=== PATIENT | female | born 1985 | race Caucasian/White ===

== ENCOUNTER 2016-12-05 00:10 | Emergency (ER) | payer BC ==
[~2016-12-05] VITALS: Ht 167.6 cm; Wt 88.9 kg
[~2016-12-05 00:10] MED LIST: NORE0.359 PO
[2016-12-05 00:42] LABS: Basophils # (auto) 0.1 uL; Basophils % (auto) 0.7 % (0.0-2.0); Eosinophils # (auto) 0.1 uL; Eosinophils % (auto) 1.5 % (0.0-7.0); Hematocrit 40.8 % (36.0-46.0); Hemoglobin 13.8 g/dL (12.2-16.2); Lymphocytes # (auto) 2.6 uL; Lymphocytes % (auto) 26.7 % (10.0-50.0); Mean Corpuscular Hemoglobin 30.6 pg (28.0-32.0); Mean Corpuscular Hgb Conc. 33.7 g/dL (32.0-36.0); Mean Corpuscular Volume 90.9 fL (80.0-100.0); Monocytes # (auto) 0.6 uL; Monocytes % (auto) 5.6 % (0.0-12.0); Neutrophils # (auto) 6.5 uL; Neutrophils % (auto) 65.5 % (37.0-80.0); Platelet Count (auto) 364 10^3/uL (140-450); Red Cell Distribution Width 12.4 % (11.6-16.0); White Blood Cell 9.9 10^3/uL (4.4-10.8)
[2016-12-05 01:04] LABS: Albumin 3.8 g/dL (3.4-5.0); Anion Gap 10 (5-15); Aspartate Aminotransferase 17 U/L (15-37); BUN/Creatinine Ratio 23.7; Blood Urea Nitrogen 14 mg/dL (7-18); Calcium 9.2 mg/dL (8.5-10.1); Carbon Dioxide 22 mmol/L (21-32); Chloride 108 mmol/L (98-107); GFR African American 151 mL/min; GFR Non-African American 125 mL/min; Glucose 90 mg/dL (74-106); Magnesium 2.6 mg/dL (1.6-2.6); Potassium 4.3 mmol/L (3.5-5.1); Sodium 140 mmol/L (136-145)
[2016-12-05 01:09] LABS: Alkaline Phosphatase 67 U/L (45-117); Bilirubin, Total 0.2 mg/dL (0.2-1.0); Total Protein 7.5 g/dL (6.4-8.2)
[2016-12-05] MEDS ORDERED: SODIUM CHLORIDE 0.9% 1,000 ML IV ONE (07:31)
[2016-12-05 09:47] VITALS: BP 112/68
== END 2016-12-05 09:55 | disposition home or self-care (01) ==
LOC: ER 00:10
DX: O26.892 Other specified pregnancy related conditions, second trimester (principal); F41.9 Anxiety disorder, unspecified; Z79.899 Other long term (current) drug therapy; Z88.8 Allergy status to other drugs, medicaments and biological substances; Z90.49 Acquired absence of other specified parts of digestive tract
CPT/HCPCS: 36415; 80053; 83735; 84484; 85025; 93005; 96360; 99285; J7030

== ENCOUNTER → 2018-06-19 | Day surgery (SDC) | payer MEDICAID ==
[2018-06-18 11:37] LABS: Basophils # (auto) 0.1 uL; Eosinophils # (auto) 0.1 uL; Eosinophils % (auto) 1.5 % (0.0-7.0); Hematocrit 46.2 % (36.0-46.0); Hemoglobin 15.6 g/dL (12.2-16.2); Lymphocytes # (auto) 1.9 uL; Lymphocytes % (auto) 36.4 % (10.0-50.0); Mean Corpuscular Hemoglobin 31.1 pg (28.0-32.0); Mean Corpuscular Hgb Conc. 33.8 g/dL (32.0-36.0); Mean Corpuscular Volume 92.1 fL (80.0-100.0); Monocytes # (auto) 0.3 uL; Monocytes % (auto) 5.7 % (0.0-12.0); Neutrophils # (auto) 2.9 uL; Neutrophils % (auto) 55.4 % (37.0-80.0); Nucleated Red Blood Cells % 0.2 %; Platelet Count (auto) 370 10^3/uL (140-450); Red Blood Cells 5.01 10^6/uL (4.0-5.20); Red Cell Distribution Width 13.9 % (11.8-14.3); White Blood Cell 5.2 10^3/uL (4.4-10.8)
[2018-06-18 11:40] LABS: Urine Bacteria NONE SEEN /hpf (None Seen); Urine Blood 1+ /uL (Negative); Urine Specific Gravity 1.018 (1.001-1.035); Urine WBC 1 /hpf (0 - 5)
[2018-06-18 11:51] LABS: INR 0.9 (0.9-1.15); Partial Thromboplastin Time 30.6 sec (23.78-33.04); Prothrombin Time 9.7 sec (9.27-12.13)
[2018-06-18 11:52] LABS: Albumin 3.5 g/dL (3.4-5.0); Calcium 8.9 mg/dL (8.5-10.1); Potassium 4.3 mmol/L (3.5-5.1)
[2018-06-18 11:54] LABS: BUN/Creatinine Ratio 13.3; Bilirubin, Total 0.3 mg/dL (0.2-1.0); Total Protein 7.7 g/dL (6.4-8.2)
[~2018-06-19] VITALS: Ht 167.6 cm; Wt 95.3 kg
[~2018-06-19] MED LIST changes: +BUPIVACAINE 0.75% INJ 10ML MPV SDV IJ ONE; +LEVOTAB OR; +MIDAZOLAM HCL 1MG/1ML-2 ML VIAL ONE; +NEOMYCIN-BACITRACIN-POLYM 15GM TOP OINT TOP ONE; -NORE0.359 PO; +ONDANSETRON HCL 4 MG/2 ML VIAL IV ONE; +PROPOFOL 10 MG/ML 20 ML IV ONE; +SUCCINYLCHOLINE CHLORIDE 20 MG/ML 10ML VIAL IV ONE; +ceFAZolin 1GM/50ML 50 ML IV ONE; +ePHEDrine SULFATE 50 MG/ML AMP IV PRN; +fentaNYL CITRATE 100 MCG/2 ML VL IV PRN; +fentaNYL CITRATE 100 MCG/2 ML VL ONE; +hydrALAZINE HCL 20 MG/ML VL IV PRN
[2018-06-19 09:13] VITALS: BP 143/82
== END | disposition home or self-care (01) ==
LOC: SUR 06:02
PROVIDERS: ATTEND Podiatrist Foot & Ankle Surgery
DX: Z47.2 Encounter for removal of internal fixation device (principal); L90.5 Scar conditions and fibrosis of skin; E66.9 Obesity, unspecified; I10 Essential (primary) hypertension; Z88.8 Allergy status to other drugs, medicaments and biological substances; Z98.890 Other specified postprocedural states; Z79.899 Other long term (current) drug therapy
CPT/HCPCS: 14040; 20680; J3010; J7030; L3260; Q4100; 36415; 80053; 81001; 84702; 85025; 85610; 85730; J0330; J0690; J2250; J2704; J3490

== ENCOUNTER 2018-06-27 07:14 | Emergency (ER) | payer MEDICAID ==
[~2018-06-27] VITALS: Ht 167.6 cm; Wt 95.3 kg
[~2018-06-27 07:14] MED LIST changes: -BUPIVACAINE 0.75% INJ 10ML MPV SDV IJ ONE; -MIDAZOLAM HCL 1MG/1ML-2 ML VIAL ONE; -NEOMYCIN-BACITRACIN-POLYM 15GM TOP OINT TOP ONE; -ONDANSETRON HCL 4 MG/2 ML VIAL IV ONE; -PROPOFOL 10 MG/ML 20 ML IV ONE; -SUCCINYLCHOLINE CHLORIDE 20 MG/ML 10ML VIAL IV ONE; -ceFAZolin 1GM/50ML 50 ML IV ONE; -ePHEDrine SULFATE 50 MG/ML AMP IV PRN; -fentaNYL CITRATE 100 MCG/2 ML VL IV PRN; -fentaNYL CITRATE 100 MCG/2 ML VL ONE; -hydrALAZINE HCL 20 MG/ML VL IV PRN
[2018-06-27 07:29] VITALS: BP 138/89
== END 2018-06-27 09:49 | disposition home or self-care (01) ==
LOC: ER 07:14
DX: M79.671 Pain in right foot (principal); M79.672 Pain in left foot; Z48.01 Encounter for change or removal of surgical wound dressing
CPT/HCPCS: 73630